=== PATIENT | male | born 1995 | race Caucasian/White ===

== ENCOUNTER 2019-12-18 13:03 | Emergency (ER) | payer OTHER ==
[~2019-12-18] VITALS: Ht 175.2 cm; Wt 79.4 kg
[2019-12-18 13:04] VITALS: BP 150/70
[2019-12-18 13:54] LABS: BILIRUBIN NEGATIVE (NEGATIVE); BLOOD NEGATIVE (NEGATIVE); CLARITY CLEAR (CLEAR); COLOR YELLOW (YELLOW); GLUCOSE NEGATIVE (NEGATIVE); KETONE NEGATIVE (NEGATIVE); LEUKO ESTERASE NEGATIVE (NEGATIVE); NITRITE NEGATIVE (NEGATIVE); PH 7.5 (5.0-9.0); SPECIFIC GRAVITY 1.025 (1.005-1.030); UROBILINOGEN 0.2 E.U./dl (0.2-1.0)
[2019-12-18 14:06] LABS: BACTERIA 1+; EPITHELIAL CELLS 0-2; RBC 0-2 rbc/hpf (0-2); WBC 0-2 wbc/hpf (0-5)
[2019-12-18] MEDS ORDERED: FLUCONAZOLE100 MG PO (14:59)
[2019-12-20 00:01] LABS: GONOCOCCUS BY NAA Negative (Negative)
== END 2019-12-18 15:02 | disposition home or self-care (01) ==
LOC: ED 13:03
PROVIDERS: Emergency Medicine
DX: N48.1 Balanitis (principal); J45.909 Unspecified asthma, uncomplicated; Z88.1 Allergy status to other antibiotic agents